=== PATIENT | female | born 1990 | race Caucasian/White ===

== ENCOUNTER 2025-05-19 21:14 | Emergency (ER) | payer OTHER, SELFPAY ==
[2025-05-19 21:19] VITALS: BP 108/73
[2025-05-20 01:14] VITALS: BP 114/76
[2025-05-20 02:00] VITALS: BP 105/74
[2025-05-20 02:56] LABS: Hematocrit 37.7 % (37.0-47.0); Hemoglobin 13.1 g/dL (12.0-16.0); Mean Corp Hgb Conc. 34.7 g/dL (33.0-37.0); Mean Corpuscular Volume 88.5 fL (81.0-99.0); Nucleated Red Blood Cells % 0 %; Platelet Count 185 10^3/uL (130-400); Red Cell Dist. Width 12.1 % (11.5-14.5)
[2025-05-20 03:00] VITALS: BP 110/78
[2025-05-20 03:04] LABS: INR 0.96; PT 13.3 Sec (11.4-14.6)
[2025-05-20 03:05] LABS: APTT 31.0 Sec (23.4-35.0)
[2025-05-20 03:12] LABS: HCG, Serum Qualitative Screen Negative
[2025-05-20 03:32] LABS: ALT (SGPT) < 10 U/L (0-35); AST (SGOT) 16 U/L (14-36); Albumin 4.3 g/dl (3.5-5.0); Alkaline Phosphatase 54 U/L (38-126); Blood Urea Nitrogen 12 mg/dl (7-17); Calcium 9.1 mg/dl (8.4-10.2); Carbon Dioxide 25 mmol/L (22-30); Chloride 107 mmol/L (98-107); Glucose 101 mg/dl (70-99); Lipase 109 U/L (23-300); Potassium 3.9 mmol/L (3.5-5.1); Sodium 139 mmol/L (135-145); Total Protein 7.2 g/dl (6.3-8.2); eGFR > 60.00
[2025-05-20] MEDS: TORADOL 15 MG IV (04:18)
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
== END 2025-05-20 05:55 | disposition home or self-care (01) ==
LOC: EMR 21:14
PROVIDERS: EMERGENCY PHYSICIAN Student in an Organized Health Care Education/Training Program
DX: S00.83XA Contusion of other part of head, initial encounter (principal); G89.11 Acute pain due to trauma; S13.4XXA Sprain of ligaments of cervical spine, initial encounter; V49.9XXA Car occupant (driver) (passenger) injured in unspecified traffic accident, initial encounter; Y92.410 Unspecified street and highway as the place of occurrence of the external cause
CPT/HCPCS: 99284; 96374; 70450; 71260; 72125; 74177; 80053; 83690; 84703; 85025; 85610; 85730; 93005; Q9967